=== PATIENT | female | born 1960 ===

== ENCOUNTER → 2021-07-17 08:00 | Outpatient (CLI) | payer OTHER | END | disposition home or self-care (01) | LOC: LAB 08:00 → ADM 13:45 → AMB-ENDOS 07-24 13:45 → EDSTATUS 07-24 13:45 | PROVIDERS: ATTEND Surgery | DX: Z03.818 Encounter for observation for suspected exposure to other biological agents ruled out (principal); Z12.11 Encounter for screening for malignant neoplasm of colon ==